=== PATIENT | male | born 1975 | race Caucasian/White ===

== ENCOUNTER → 2017-06-03 | Outpatient (REF) | payer OTHER | LOC: ZZSTITCHES 18:04 | PROVIDERS: ATTEND Physician Assistant | DX: Z77.21 Contact with and (suspected) exposure to potentially hazardous body fluids (principal) | CPT/HCPCS: 86703; 86706; 86803 ==

== ENCOUNTER → 2018-04-14 | Outpatient (REF) | payer OTHER | LOC: ZZSENDIN 13:16 | PROVIDERS: ATTEND Physician Assistant | DX: Z77.21 Contact with and (suspected) exposure to potentially hazardous body fluids (principal) | CPT/HCPCS: 86703; 86803; 87340 ==